=== PATIENT | male | born 1990 | race Caucasian/White ===

== ENCOUNTER 2024-04-09 13:46 | Emergency (ER) | payer BC, OTHER ==
[~2024-04-09] VITALS: Ht 190.5 cm; Wt 61.7 kg
[2024-04-09 15:23] LABS: Trichomonas vaginalis (AMP) NOT DETECTED (NEGATIVE)
[2024-04-09 15:29] LABS: APPEARANCE, URINE CLEAR (CLEAR); BACTERIA, URINE AUTO NEGATIVE (NEGATIVE); BILIRUBIN, URINE AUTO NEGATIVE (NEGATIVE); BLOOD, URINE BLOOD NEGATIVE (NEGATIVE); COLOR, URINE YELLOW (YELLOW); GLUCOSE, URINE (UA) AUTO NEGATIVE (NEGATIVE); KETONE, URINE AUTO 1+ mg/dL (NEGATIVE); LEUKOCYTE ESTERASE, URINE AUTO NEGATIVE (NEGATIVE); MUCUS, URINE SMALL (NEGATIVE); NITRITE, URINE AUTO NEGATIVE (NEGATIVE); PROTEIN, URINE AUTO NEGATIVE (NEGATIVE); RBC, URINE AUTO 1 /HPF (0-3); SPECIFIC GRAVITY URINE AUTO 1.021 (1.002-1.035); SQUAMOUS EPITHELIAL CELL UR AU 0 /HPF (0-6); UROBILINOGEN, URINE AUTO 0.2 mg/dL (0.0-2.0); WBC, URINE AUTO 1 /HPF (0-3)
[2024-04-09 15:47] LABS: GC DNA AMPLIFICATION NEGATIVE (NEGATIVE)
[2024-04-09] MEDS: IBUPROFEN 600MG TAB PO ONE (15:54)
[2024-04-09] MEDS ORDERED: CIPR500S PO (16:27)
[2024-04-09] MEDS ORDERED: CIPR-249 PO (16:28)
[2024-04-09] MEDS: CIPROFLOXACIN 500MG TABLET PO ONE (16:31)
[2024-04-09 16:34] VITALS: BP 119/75; TEMP 98.2; O2SAT 99
== END 2024-04-09 16:40 | disposition home or self-care (01) ==
LOC: M ED 13:46
DX: N45.2 Orchitis (principal); N41.0 Acute prostatitis; Z79.1 Long term (current) use of non-steroidal anti-inflammatories (NSAID)